=== PATIENT | female | born 1930 | race Caucasian/White ===

== ENCOUNTER 2017-08-05 11:58 | Emergency (ER) | payer MEDICARE ==
[~2017-08-05] VITALS: Ht 154.9 cm; Wt 79.4 kg
--- NOTE | 2017-08-05 12:19 | ER.PDOC ---
General Chief Complaint: Requesting Medical Care Stated Complaint: FALL;HEAD INJURY,LACERATION ON HANDS,FACE Time seen by MD: 12:21 Source: patient History of Present Illness Occurred: just prior to arrival Where: street Severity: mild Injuries/Pain Location: head, face, upper extremity Context: Lost Balance Loss of Consciousness: No Loss of Consciousness Modifying Factors: improves with movement Associated Symptoms: denies symptoms Allergies: Coded Allergies: No Known Allergies (Unverified , 04/20/17) Review of Systems All Other Systems: Reviewed and Negative Physical Exam General Appearance: No Apparent Distress, WD/WN Head: Contusions, Swelling Ears, Nose, Mouth, Throat: Hearing Grossly Normal, No Dental Injury, Other ( ABRAISON NOSE) Neck: Non-Tender, Normal Alignment, Nexus criteria neg, Normal Inspection 1 - EDEMA Cardiovascular/Respiratory: Regular Rate, Rhythm, No M/R/G, Normal Peripheral Pulses, No JVD, Normal Breath Sounds, No Respiratory Distress Gastrointestinal: Normal Bowel Sounds, No Organomegaly, No Pulsatile Mass, Non Tender, Soft Back: Normal Inspection, No CVA Tenderness, No Vertebral Tenderness Extremities: Other (LACERATION R HAND) 1 - LACERATION 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 NML as Tested, No Motor/Sensory Deficits, Alert, Normal Mood/Affect, Oriented x 3 Skin: Normal Color, Warm/Dry Laceration/Wound Repair Laceration/Wound Repair : Anesthesia type: local Anesthesia: 1% Lidocaine Wound's Depth, Shape: subcutaneous Wound Explored: contaminated Tendon Intact: Yes Wound Debrided: minimal Wound Repaired With: sutures Suture Size/Type: 5:0, nylon Suture Style: interupted Departure Time of Disposition: 13:33 Disposition: 01 HOME, SELF-CARE Impression: Primary Impression: Laceration of right hand Additional Impression: Scalp contusion Condition: Improved Referrals: ANGEL PEREZ YARD DEMURRAGE CLERK (PCP) PRIMARY CARE PROVIDER Duration or Time Spent with Pa: 1 hr GALEN RODRIGUEZ MD Aug 05, 2017 12:19
[2017-08-05 12:22] VITALS: BP 157/89
[2017-08-05] MEDS ORDERED: LIDOCAINE 1% VIAL ONE (12:27)
--- NOTE | 2017-08-05 12:41 | DIREP ---
PROCEDURE:CT HEAD OR BRAIN W/O CONTRAST COMPARISON:None. INDICATIONS:FALL, HIT HEAD TECHNIQUE:CT images were created without intravenous contrast. FINDINGS: VENTRICLES: Unremarkable ventricular size and morphology for the patient's age. CEREBRUM: No apparent mass or mass effect. No acute intracranial hemorrhage or abnormal extra-axial fluid collections. Minimal chronic small vessel ischemic demyelination. No CT evidence to suggest acute large vascular territorial ischemia. CEREBELLUM: Unremarkable for the patient's age. BRAINSTEM: Normal. SKULL: Hyperostosis frontalis interna. Mild frontal scalp hematoma just above the nasal bridge. No underlying fracture. SINUSES: No significant paranasal sinus disease OTHER: Intracranial vascular calcifications. CONCLUSION: 1. Senescent changes with minimal chronic small vessel ischemic demyelination. No acute intracranial abnormality. 2. Frontal scalp hematoma without underlying fracture. Dictated by: Rusty Bullard M.D. On 08/05/2017 at 12:36 PM
[2017-08-05] MEDS ORDERED: ULTRAM ONE (12:51)
[2017-08-05] MEDS ORDERED: TRIPLE ANTIBIOTIC OINTMENT TP ONE (13:16)
--- NOTE | 2017-08-05 13:25 | NUR ---
TRAMADOL 50MG GIVEN BY MOUTH ORDERED, MEDICATION DID NOT CROSS OVER.
[2017-08-05 13:38] VITALS: BP 151/80
--- NOTE | 2017-08-05 13:38 | NUR ---
SUTURES 7 SUTURES APPLIED TO PATIENT RIGHT HAND, WOUND IRRIGATED CONTINUOUSLY WITH 100ML OF SALINE, CLEANSED WITH BEDADINE, TRIPLE ANTIBIOTIC APPLIED, TEFLA AND COBAN DRESSING, PATIENT DENIED ANY DISTRESS AT THIS TIME.
[2017-08-05] MEDS ORDERED: ULTRAM PO STA (13:41)
== END 2017-08-05 13:30 | disposition home or self-care (01) ==
LOC: ER 11:58
DX: S61.411A Laceration without foreign body of right hand, initial encounter (principal); S00.03XA Contusion of scalp, initial encounter; W19.XXXA Unspecified fall, initial encounter; Y93.89 Activity, other specified; Y92.410 Unspecified street and highway as the place of occurrence of the external cause; Y99.8 Other external cause status
CPT/HCPCS: 12042; 70450; 99285; J2001